=== PATIENT | female | born 1980 | race Caucasian/White ===

== ENCOUNTER 2017-01-06 19:34 | Emergency (ER) | payer OTHER ==
[~2017-01-06 19:34] MED LIST: DILANTIN KAPSE100 MG PO; FLEXERIL10 MG PO; HYDROCODON-ACE1 EAC2 PO; NEURONTIN300 MG PO; NICODERM 14MG PA1 EA TD; NICODERM 7MG PAT1 EA TD; PRILOSEC20 MG PO; SULFAMETHOXAZO1 EACH PO
== END 2017-01-06 21:14 | disposition home or self-care (01) ==
LOC: ER 19:34
DX: L02.413 Cutaneous abscess of right upper limb (principal); Z90.710 Acquired absence of both cervix and uterus; Z79.891 Long term (current) use of opiate analgesic; Z79.899 Other long term (current) drug therapy; Z88.8 Allergy status to other drugs, medicaments and biological substances
CPT/HCPCS: 10061; 87070; 99070; 99283-25